=== PATIENT | female | born 1970 | race Caucasian/White ===

== ENCOUNTER 2018-05-01 15:41 | Observation (INO) ==
[2018-05-01] MEDS ORDERED: Acetaminophen 325 MG Tablet PO ONE (16:55)
[2018-05-01] MEDS ORDERED: Aspirin 325 MG Tablet PO ONE (16:55)
[2018-05-01] MEDS ORDERED: Famotidine PF Inj 20 MG/2 ML Vial IV.PUSH ONE (16:55)
[2018-05-01 17:11] LABS: Baso % (Auto) 0.5 % (0.0-2.0); Eos # (Auto) 0.1 th/mm3 (0.0-0.4); Eos % (Auto) 1.8 % (0.0-4.0); Hematocrit 36.5 % (35.0-46.0); Hemoglobin 12.5 gm/dL (11.6-15.3); Lymph # (Auto) 1.6 th/mm3 (1.0-4.8); Lymph % (Auto) 21.2 % (9.0-44.0); Mean Corpuscular HGB Conc 34.3 % (32.0-36.0); Mean Corpuscular Hemoglobin 31.7 pg (27.0-34.0); Mean Corpuscular Volume 92.3 fL (80.0-100.0); Mean Platelet Volume 6.6 fL (7.0-11.0); Mono # (Auto) 0.6 th/mm3 (0.0-0.9); Neut # (Auto) 5.3 th/mm3 (1.8-7.7); Neut % (Auto) 68.5 % (16.0-70.0); Platelet Count 333 th/mm3 (150-450); Red Blood Count 3.96 mil/mm3 (4.00-5.30); Red Cell Distribution Width 13.4 % (11.6-17.2); White Blood Count 7.7 th/mm3 (4.0-11.0)
--- NOTE | 2018-05-01 17:17 | XR ---
EXAM DATE: 05/01/2018 5:14 PM EDT AGE/SEX: 47 years / Female INDICATIONS: Left sided posterior chest pain and shortness of breath. CLINICAL DATA: This is the patient's initial encounter. Patient reports that signs and symptoms have been present for 1 day and indicates a pain score of 9/10. MEDICAL/SURGICAL HISTORY: None. None. COMPARISON: [facility], XR CHEST PA AND LAT, 12/18/2017. . FINDINGS: A single AP view of the chest demonstrates the lungs to be symmetrically aerated without evidence of mass, infiltrate or effusion. The cardiomediastinal contours are unremarkable. Osseous structures a re intact. CONCLUSION: Negative examination. Electronically signed by: Hero Bergman MD 05/01/2018 5:15 PM EDT
[2018-05-01 17:37] LABS: Alanine Aminotransferase 21 U/L (10-53); Albumin 3.8 g/dL (3.4-5.0); Anion Gap 8 meq/L (5-15); Aspartate Aminotransferase 16 U/L (15-37); Blood Urea Nitrogen 11 mg/dL (7-18); Calcium 8.4 mg/dL (8.5-10.1); Carbon Dioxide 27.9 meq/L (21.0-32.0); Chloride 106 meq/L (98-107); Glomerular Filtration Rate 63 mL/min (>89); Glucose,Random 92 mg/dL (74-106); Lipase 139 U/L (73-393); Sodium 142 meq/L (136-145)
[2018-05-01 17:41] LABS: Alkaline Phosphatase 51 U/L (45-117); Total Protein 7.5 g/dL (6.4-8.2)
[2018-05-01 17:52] LABS: Creatine Kinase 88 U/L (26-192)
--- NOTE | 2018-05-01 17:58 | ED ---
HPI General Chief Complaint: Chest Pain Stated Complaint: chest pain Time Seen by Provider: 05/01/18 16:45 Source: patient and family Mode of arrival: ambulatory Limitations: no limitations History of Present Illness HPI narrative: 47-year-old female that presents to the ED for evaluation of left -sided chest pain, headache and back pain. Per patient the pain starts from the back and goes to the front on the left side. Only on the left side. She woke up with this pain. Per patient she also woke up with heartburn that she is not really experienced before. Per patient feels like a burning sensation. Pain on the chest per patient is sharp and is 8 out of 10 and feels like somebody put a pin on her back all the way to the front. Per patient she started having a headache as well as some lightheadedness. Per patient she takes no medications other than over the counter vitamins. Per patient she has had similar pain in the past but not as significant as today and never with hearthburn and headache. No urinary or bowel movement issues. No control use. No recent travel. No injuries. Complete Quality Measures for STEMI Alert Patients Related Data Home Medications Medication Instructions Recorded Confirmed ascorbic acid (vitamin C) [Vitamin 1,000 mg PO DAILY 05/01/18 05/01/18 C] cyanocobalamin (vitamin B-12) 5,000 mcg PO DAILY 05/01/18 05/01/18 [Vitamin B-12] Allergies Allergy/AdvReac Type Severity Reaction Status Date / Time shellfish derived Allergy Anaphylaxis Verified 05/01/18 15:51 Review of Systems ROS: all other systems reviewed are negative [facility] Medical History Medical History Patient denies medical problems (Acute) Social History Social History Substance History: No History of Abuse Second Hand Smoke Exposure: Yes Smoking Status: Former smoker How Often Do You Have a Drink Containing Alcohol: Monthly or less Recent Travel in [facility] within the Last 8 Weeks: No Recent Out of Country Travel within the Last 8 Weeks: No Immunization History Tetanus Immunization: >5 Years Hx Influenza Vaccine This Season: No Exam Narrative Exam Narrative: GENERAL: Well appearing SKIN: Focused skin assessment warm/dry. HEAD: Atraumatic. Normocephalic. EYES: Pupils equal and round. No scleral icterus. No injection or drainage. ENT: No nasal bleeding or discharge. Mucous membranes pink and moist. Tongue is midline. No uvula deviation. NECK: Trachea midline. No JVD. CARDIOVASCULAR: Regular rate and rhythm. No murmur appreciated. Chest pain is not reproducible with touch. RESPIRATORY: No accessory muscle use. Clear to auscultation. Breath sounds equal bilaterally. GASTROINTESTINAL: Abdomen soft, non-tender, nondistended. Hepatic and splenic margins not palpable. MUSCULOSKELETAL: No obvious deformities. No clubbing. No cyanosis. No edema. Full range of motion of the upper and lower extremities bilaterally. 2+ pulses bilaterally. NEUROLOGICAL: Awake and alert. No obvious cranial nerve deficits. Motor grossly within normal limits. Normal speech. PSYCHIATRIC: Appropriate mood and affect; insight and judgment normal. Course Initial Documented Vital Signs Temperature 98.7 F 05/01/18 15:51 Pulse Rate 93 H 05/01/18 15:51 Respiratory Rate 17 05/01/18 15:51 Blood Pressure 141/73 H 05/01/18 15:51 Pulse Oximetry 98 05/01/18 15:51 Last Documented Vital Signs Temperature 98.7 F 05/01/18 15:51 Pulse Rate 76 05/01/18 18:18 Respiratory Rate 17 05/01/18 18:18 Blood Pressure 122/76 05/01/18 18:18 Pulse Oximetry 100 05/01/18 18:18 Medical Decision Making MDM Narrative Medical decision making narrative: 47-year-old female that presents to the ED for evaluation of left-sided chest pain that starts from the back. Patient was properly examined and was found to have signs and symptoms of unclear etiology. There is some concern for ACS. Patient does have a significant family history of ACS in the family with mother having had multiple heart events in the past. She does not have any other risk factors at this time other than her blood pressure. Currently states that her pain is 6 out of 10. She was given aspirin nitroglycerin. Labs and imaging were ordered. Labs and imaging showed no sign of acute disease. Case was discussed with my attending. Would recommend admission to chest pain center for further evaluation secondary to patient having risk factors and the pain that she is having. He does appear to be somewhat atypical but I cannot completely rule out ACS and she does have a family history of heart disease. Patient was offered this and agreed to admission for further evaluation. Patient was admitted by me to chest pain center. Orders placed by me. Medical Screen Exam Complete: Yes Emergency Medical Condition: Yes Differential Diagnosis Differential Diagnosis: Chest pain versus typical chest pain versus ACS versus PE versus muscle strain versus muscle spasm Medical Records Medical records reviewed: Yes I reviewed the patient's medical records. Lab Data Lab results reviewed: Yes I reviewed the patient's lab results. Lab results narrative: troponin and CKMB negative d-dimmer negative Result diagrams: 05/01/18 16:45 05/01/18 16:45 Lab Results 05/01/18 05/01/18 05/01/18 Range/Units 16:45 16:45 16:45 WBC 7.7 (4.0-11.0) th/mm3 RBC 3.96 L (4.00-5.30) mil/mm3 Hgb 12.5 (11.6-15.3) gm/dL Hct 36.5 (35.0-46.0) % MCV 92.3 (80.0-100.0) fL MCH 31.7 (27.0-34.0) pg MCHC 34.3 (32.0-36.0) % RDW 13.4 (11.6-17.2) % Plt Count 333 (150-450) th/mm3 MPV 6.6 L (7.0-11.0) fL Neut % (Auto) 68.5 (16.0-70.0) % Lymph % (Auto) 21.2 (9.0-44.0) % [place] % (Auto) 8.0 (0.0-8.0) % Eos % (Auto) 1.8 (0.0-4.0) % Baso % (Auto) 0.5 (0.0-2.0) % Neut # (Auto) 5.3 (1.8-7.7) th/mm3 Lymph # (Auto) 1.6 (1.0-4.8) th/mm3 [place] # (Auto) 0.6 (0.0-0.9) th/mm3 Eos # (Auto) 0.1 (0.0-0.4) th/mm3 Baso # (Auto) 0.0 (0.0-0.2) th/mm3 WBC Differential . Differential Comment Auto diff final D-Dimer Quant (PE/DVT) Less than 0.19 (0.00-0.50) mg/L FEU Sodium 142 (136-145) meq/L Potassium 4.0 (3.5-5.1) meq/L Chloride 106 (98-107) meq/L Carbon Dioxide 27.9 (21.0-32.0) meq/L Anion Gap 8 (5-15) meq/L BUN 11 (7-18) mg/dL Creatinine 0.95 (0.50-1.00) mg/dL Estimated GFR 63 L (>89) mL/min Random Glucose 92 (74-106) mg/dL Calcium 8.4 L (8.5-10.1) mg/dL Total Bilirubin 0.2 (0.2-1.0) mg/dL AST 16 (15-37) U/L ALT 21 (10-53) U/L Alkaline Phosphatase 51 (45-117) U/L Total Creatine Kinase 88 (26-192) U/L Troponin I Less than 0.02 L (0.02-0.05) ng/mL Total Protein 7.5 (6.4-8.2) g/dL Albumin 3.8 (3.4-5.0) g/dL Lipase 139 (73-393) U/L Imaging Data Attestation: I personally reviewed and interpreted this imaging study as follows : Radiologist's impression: Chest X-Ray 05/01/18 16:55 CONCLUSION: Negative examination. Thoracic Spine CT 05/01/18 18:05 CONCLUSION: Negative thoracic spine CT examination. ECG Data Attestation: I personally reviewed and interpreted this ECG as follows: Interpretation: EKG shows sinus rhythm with no sign of ST elevations or acute ischemia read by me and attending. Ventricular rate of 98, UT interval of 203 ms. Discharge Plan Discharge Disposition Patient Disposition: 30 Still Patient Discharge Details Diagnosis: Chest pain Physicians Team ED Provider: Krista Meneses ED Midlevel Provider: Jon Daniels Primary Care Provider: NON STAFF,PROVIDER Attending Provider: Ritesh Hancock Status ED Status: Admitted Observation Patient
[2018-05-01] MEDS ORDERED: Morphine Inj 4 MG/ML Vial IV.PUSH ONE (18:34)
--- NOTE | 2018-05-01 19:33 | CT ---
EXAM DATE: 05/01/2018 7:22 PM EDT AGE/SEX: 47 years / Female INDICATIONS: Upper back and left sided chest pain. CLINICAL DATA: This is the patient's initial encounter. Patient reports that signs and symptoms have been present for 1 day and indicates a pain score of 7/10. MEDICAL/SURGICAL HISTORY: None. None. RADIATION DOSE: 27.36 CTDI (mGy) COMPARISON: No prior exams available for comparison. TECHNIQUE: Contiguous axial images were acquired using a multirow detector CT scanner without contra st. Multiplanar reconstruction in the sagittal and coronal planes was performed. Using automated exp osure control and adjustment of the mA and/or kV according to patient size, radiation dose was kept a s low as reasonably achievable to obtain optimal diagnostic quality images. DICOM format image data is available electronically for review and comparison. FINDINGS: Vertebrae: Normal vertebral body height. Alignment: Normal. No subluxation. T1 - T2: Normal. T2 - T3: The thecal sac has a normal diameter. No evidence of disc bulge or protrusion. T3 - T4: The thecal sac has a normal diameter. No evidence of disc bulge or protrusion. T4 - T5: The thecal sac has a normal diameter. No evidence of disc bulge or protrusion. T5 - T6: The thecal sac has a normal diameter. No evidence of disc bulge or protrusion. T6 - T7: The thecal sac has a normal diameter. No evidence of disc bulge or protrusion. T7 - T8: The thecal sac has a normal diameter. No evidence of disc bulge or protrusion. T8 - T9: The thecal sac has a normal diameter. No evidence of disc bulge or protrusion. T9 - T10: The thecal sac has a normal diameter. No evidence of disc bulge or protrusion. T10 - T11: The thecal sac has a normal diameter. No evidence of disc bulge or protrusion. T11 - T12: The thecal sac has a normal diameter. No evidence of disc bulge or protrusion. T12 - L1: The thecal sac has a normal diameter. No evidence of disc bulge or protrusion. CONCLUSION: Negative thoracic spine CT examination. Electronically signed by: Ramy Knott MD 05/01/2018 7:31 PM EDT
[2018-05-01] MEDS ORDERED: Morphine Inj 4 MG/ML Vial IV.PUSH PRN (19:40)
[2018-05-01] MEDS ORDERED: Acetaminophen 500 MG Tablet PO PRN (19:40)
[2018-05-01 21:50] LABS: Creatine Kinase 69 U/L (26-192)
[2018-05-02 03:14] LABS: Creatine Kinase 64 U/L (26-192)
--- NOTE | 2018-05-02 08:00 | P.HPCA ---
History of Present Illness Primary Care Physician: PROVIDER NON STAFF-[place] Chief Complaint: left shoulder and chest pain History of Present Illness: 47-year-old female with history of hyperlipidemia presents to the emergency room for further evaluation of left shoulder and chest pain. Onset yesterday 3: 30 AM location left shoulder blade. Radiation to left shoulder, left anterior chest, and left posterior neck, and left jaw. Characterized as sharp, stabbing pain. Moderate to severe in severity. Duration constant. Currently described as a "dull, throbbing pain." Endorses chronic nausea, therefore unable to determine if she had associated nausea with above symptoms. Denied vomiting, dyspnea, or diaphoresis. States "I couldn't take a deep breath due to the pain. " Notices discomfort "more with movement." Relieving factors massaging area, stating has been massaging area helps. Former smoker quit 16 years ago. No known CAD, diabetes, or hypertension. Diagnosed in early 20s with hyperlipidemia, not taking medications due to her concern with statin therapy. No past cardiac testing. Recent illness, fever, or injury. Endorses similar pain although not as severe in her left shoulder for many years. Past cardiac testing 2001-30 day Holter monitor due to syncope episodes. Determine cause of syncope episode likely due to carbon monoxide poisoning related to job. Worked for [employer]. - Diagnosis (1) Atypical chest pain (2) Left shoulder pain (3) Hyperlipidemia Review of Systems All other systems reviewed negative except as stated in HPI [facility] - History History Provided By: Patient - Medical History Medical History: Medical History (Last Updated 05/02/18 @ 09:44 by MOE Rae) Chronic nausea Hyperlipidemia - Family History Family History: Family History (Last Updated 05/02/18 @ 09:46 by MOE Rae) Aunt Breast cancer Ovarian cancer Aunt Ovarian cancer Father Prostate cancer CVA (cerebral vascular accident) Mother CVA (cerebral vascular accident) - Tobacco History Second Hand Smoke Exposure: Yes Tobacco Use In Past 30 Days: No Smoking Status: Former smoker (Quit 16 years ago) - Alcohol History How Often Do You Have a Drink Containing Alcohol: Never - Substance Use History Substance History: No History of Abuse - Travel History Recent Travel in the [place] Within the Last 8 Weeks: No Recent Travel Out of the Country Within the Last 8 Weeks: No - Immunization History Tetanus Immunization: >5 Years Hx Influenza Vaccine This Season: No Medications and Allergies Active Medications: Active Medications Acetaminophen (Tylenol) 500 mg PO Q4H PRN PRN Reason: HEADACHE Hydrocodone Bitart/Acetaminophen ([place] 7.5/325) 1 tab PO Q4H PRN PRN Reason: PAIN SCALE 1 TO 7 Morphine Sulfate (Morphine Inj) 2 mg IV.PUSH Q4H PRN PRN Reason: PAIN SCALE 8 TO 10 Sodium Chloride (Ns Flush) 2 ml IV.FLUSH UNSCH PRN PRN Reason: FLUSH AFTER USING IV ACCESS Sodium Chloride (Ns Flush) 2 ml IV.FLUSH BID IZAIAH Last Admin: 05/02/18 07:24 Dose: Not Given Sodium Chloride (Ns Flush) 2 ml IV.FLUSH PRN PRN PRN Reason: FLUSH AFTER USING IV ACCESS Allergies Allergy/AdvReac Type Severity Reaction Status Date / Time shellfish derived Allergy Anaphylaxis Verified 05/01/18 15:51 Home Medications Medication Instructions Recorded Confirmed Type ascorbic acid (vitamin C) [Vitamin 1,000 mg PO DAILY 05/01/18 05/01/18 History C] cyanocobalamin (vitamin B-12) 5,000 mcg PO DAILY 05/01/18 05/01/18 History [Vitamin B-12] Exam Vital signs: Vital Signs 05/01/18 15:51 05/01/18 17:02 05/01/18 18:18 Temperature 98.7 F Pulse Rate 93 H 76 Respiratory Rate 17 17 Blood Pressure 141/73 H 122/76 Pulse Oximetry 98 97 100 05/02/18 01:28 05/02/18 04:23 05/02/18 04:37 Temperature 97.5 F L 98 F Pulse Rate 70 67 63 Respiratory Rate 18 18 Blood Pressure 119/77 93/59 L Pulse Oximetry 100 05/02/18 07:33 05/02/18 07:51 Temperature 93.8 F L Pulse Rate 76 74 Respiratory Rate 12 Blood Pressure 108/64 Pulse Oximetry 98 Intake & Output 05/01/18 05/02/18 05/02/18 18:59 06:59 18:59 Intake Total 0 / 0 Balance 0 / 0 Weight 90.718 kg Intake: Oral 0 / 0 Other: # Voids 0 Date of Last Bowel Movement 05/01/18 Narrative: GENERAL: Alert WN, WD, NAD, very pleasant, female HEAD: NC, AT EYES: Sclera clear, conjunctiva without injection, pupils equal and round CV: RRR, without murmur, rub, gallop, no JVD, S1-S2 no S3-S4. Left anterior chest wall pain with palpation. RESP: Clear lungs throughout bilateral, no crackles, wheeze, rhonchi, symmetrical chest rise, nonlabored, able to speak in full sentences ABD: Soft, NT, ND, no masses, positive bowel tones EXT: Pulses +2x4, no dependent edema MS: Normal tone x4 extremities, no obvious deformities, full range of motion, left scapula point tenderness with palpation, no reproducible pain with passive left arm/shoulder movement NEURO: CN II through CN XII grossly intact, motor strength 5/5 PSYCH: A+O x3, pleasant affect, appropriate speech, mood, insight and judgment SKIN: Normal turgor, normal texture, no lesions, no rashes, brisk cap refill, even hair distribution Results 05/01/18 16:45 05/01/18 16:45 Cardiac Enzymes 05/01/18 05/01/18 05/02/18 Range/Units 16:45 20:30 02:00 AST 16 (15-37) U/L Troponin I Less than 0.02 L Less than 0.02 L Less than 0.02 L (0.02-0.05) ng/mL CBC 05/01/18 Range/Units 16:45 WBC 7.7 (4.0-11.0) th/mm3 RBC 3.96 L (4.00-5.30) mil/mm3 Hgb 12.5 (11.6-15.3) gm/dL Hct 36.5 (35.0-46.0) % Plt Count 333 (150-450) th/mm3 Neut # (Auto) 5.3 (1.8-7.7) th/mm3 Lymph # (Auto) 1.6 (1.0-4.8) th/mm3 [place] # (Auto) 0.6 (0.0-0.9) th/mm3 Eos # (Auto) 0.1 (0.0-0.4) th/mm3 Baso # (Auto) 0.0 (0.0-0.2) th/mm3 Comprehensive Metabolic Panel 05/01/18 Range/Units 16:45 Sodium 142 (136-145) meq/L Potassium 4.0 (3.5-5.1) meq/L Chloride 106 (98-107) meq/L Carbon Dioxide 27.9 (21.0-32.0) meq/L BUN 11 (7-18) mg/dL Creatinine 0.95 (0.50-1.00) mg/dL Calcium 8.4 L (8.5-10.1) mg/dL AST 16 (15-37) U/L ALT 21 (10-53) U/L Alkaline Phosphatase 51 (45-117) U/L Total Protein 7.5 (6.4-8.2) g/dL Albumin 3.8 (3.4-5.0) g/dL Intake and Output 05/01/18 05/02/18 05/02/18 22:59 06:59 14:59 Intake Total 0 / 0 Balance 0 / 0 Intake: Oral 0 / 0 Other: # Voids 0 Date of Last Bowel Movement 05/01/18 Weight 90.718 kg EKG interpretations - EKG EKG results cardiology: sinus rhythm, normal axis, normal QRS, normal ST/T (1st EKG-nsr, normal axis, nonspecific T-wave change, 3rd-EKG normal sinus rhythm first-degree AV block, no ST-T segment change) Caprini VTE Risk Assessment Caprini VTE Risk Assessment: No/Low Risk (score <= 1) Caprini Risk Assessment Model: Point Value = 1 Point Value = 2 Point Value = 3 Point Value = 5 Age 41-60 Minor surgery BMI > 25 kg/m2 Swollen legs Varicose veins or History of unexplained or recurrent spontaneous Oral contraceptives or hormone replacement Sepsis (< 1 month) Serious lung disease, including pneumonia (< 1 month) Abnormal pulmonary function Acute myocardial infarction Congestive heart failure (< 1 month) History of inflammatory bowel disease Medical patient at bed rest Age 61-74 Arthroscopic surgery Major open surgery (> 45 min) Laparoscopic surgery (> 45 min) Malignancy Confined to bed (> 72 hours) Immobilizing plaster cast Central venous access Age >= 75 History of VTE Family history of VTE Factor V Leiden Prothrombin [id number] Lupus anticoagulant Anticardiolipin antibodies Elevated serum homocysteine Heparin-induced thrombocytopenia Other congenital or acquired thrombophilia Stroke (< 1 month) Elective arthroplasty Hip, pelvis, or leg fracture Acute spinal cord injury (< 1 month) Prophylaxis Regimen: Total Risk Factor Score Risk Level Prophylaxis Regimen 0-1 Low Early ambulation 2 Moderate Order ONE of the following: *Sequential Compression Device (SCD) *Heparin 5000 units SQ BID 3-4 Higher Order ONE of the following medications: *Heparin 5000 units SQ TID *Enoxaparin/Lovenox 40 mg SQ daily (WT < 150 kg, CrCl > 30 mL/min) *Enoxaparin/Lovenox 30 mg SQ daily (WT < 150 kg, CrCl > 10-29 mL/min) *Enoxaparin/Lovenox 30 mg SQ BID (WT < 150 kg, CrCl > 30 mL/min) AND/OR *Sequential Compression Device (SCD) 5 or more Highest Order ONE of the following medications: *Heparin 5000 units SQ TID (Preferred with Epidurals) *Enoxaparin/Lovenox 40 mg SQ daily (WT < 150 kg, CrCl > 30 mL/min) *Enoxaparin/Lovenox 30 mg SQ daily (WT < 150 kg, CrCl > 10-29 mL/min) *Enoxaparin/Lovenox 30 mg SQ BID (WT < 150 kg, CrCl > 30 mL/min) AND *Sequential Compression Device (SCD) Assessment and Plan - Assessment (1) Atypical chest pain Code(s): R07.89 - Other chest pain Status: Acute Plan: Admitted to chest pain center. ACS ruled out with 3 sets of EKGs and cardiac enzymes. Will be seen and evaluated by Dr. Ritesh Hancock. Likely will proceed with exercise cardiac testing. Comfort left anterior chest likely related to muscular chest wall referred pain Toradol 30 mg IV 1 dose now. (2) Left shoulder pain Code(s): M25.512 - Pain in left shoulder Status: Acute Plan: Toradol 30 mg IV 1 dose now. Thoracic spine imaging unremarkable. (3) Hyperlipidemia Code(s): E78.5 - Hyperlipidemia, unspecified Status: Chronic Plan: Strongly encouraged taking PCP advice of starting statin therapy. Encouraged dietary modifications and increasing daily activity in addition to statin therapy, not as substitution. Reports high cholesterol numbers since early 20s and has been resistant to taking cholesterol medication. H&P: Quality - VTE Deep Vein Thrombosis/Pulmonary Embolism Present on Admission: No (3) Hyperlipidemia Qualifiers: Hyperlipidemia type: unspecified Qualified Code(s): E78.5 - Hyperlipidemia, unspecified
[2018-05-02] MEDS ORDERED: Ketorolac Inj 30 MG/ML (IVP) Vial IV.PUSH ONE (08:45)
--- NOTE | 2018-05-02 11:27 | TR ---
Date Performed: 05/02/2018 Time Performed: 10:31:10 DOCTOR: Ritesh Hancock DRUG LIST: CLINICAL HISTORY: REASON FOR TEST: Chest pain REASON FOR ENDING: OBSERVATION: CONCLUSION: Ishmael protocol completed. Stopped sec to exceeding target heart rate. Maximum QR=963 Max HR Achieved=94.0% Maximum OY=361/62 Total Exercise Time=9:01. No reprod chest discomfort. Baseli ne st t nonspecific change. Liable st segment changes during exam. ST segment upsloping at peak. Goo d exercise tolerance. Rare PVC. Normal bp response. Recovery quick. During recovery st depression and t wave inversion. COMMENTS: very labile STT changes, suggest nuc ETT test.
[2018-05-02 14:18] VITALS: BP 103/65; PULSE 83; RESP 16; TEMP 97.8; O2SAT 100
--- NOTE | 2018-05-02 14:30 | NM ---
EXAM DATE: 05/02/2018 2:26 PM EDT AGE/SEX: 47 years / Female INDICATIONS: Angina. . Chest pain radiating to left shoulder, left anterior chest, and left posterio r neck, and left jaw. CLINICAL DATA: This is the patient's initial encounter. Patient reports that signs and symptoms have been present for 1 day and indicates a pain score of 4/10. MEDICAL/SURGICAL HISTORY: . Chronic nausea, hyperlipidemia. . COMPARISON: No prior exams available for comparison. DOSE: 8.8 mCi Tc 99m Myoview at rest 27.5 mCi [id number] at stress REST HEART RATE: 98 BPM TARGET HEART RATE: 148 BPM MAX HEART RATE: 163 BPM REST BLOOD PRESSURE: 104/64 mmHg MAX BLOOD PRESSURE: 156/66 mmHg EJECTION FRACTION: 52 % TECHNIQUE: The patient underwent upright treadmill exercise in the chest pain center. Continuous EC G tracing was monitored during stress. Gated SPECT imaging was performed after stress, and conventio nal SPECT imaging was performed at rest. The examination was performed on a SPECT/CT scanner, both a ttenuation-corrected and non-corrected datasets were reviewed. FINDINGS: Distribution: The maximum perfused segment at stress is in the inferior wall. Perfusion: No reversible perfusion defects are identified. A small fixed perfusion defect at the a nterior wall is seen. Gated Study: There are intact wall motion and wall thickening without hypokinetic or dyskinetic segme nts. The ejection fraction is calculated at 52%. RISK CATEGORY: Low (<1% Annual Motality Rate) CONCLUSION: 1. No reversible perfusion defects are identified at this time to suggest stress-induced myocardial ischemia. Electronically signed by: Hero Bergman MD 05/02/2018 2:29 PM EDT
--- NOTE | 2018-05-02 15:36 | TR ---
Date Performed: 05/02/2018 Time Performed: 12:51:35 DOCTOR: Ritesh Hancock DRUG LIST: CLINICAL HISTORY: REASON FOR TEST: Chest pain REASON FOR ENDING: OBSERVATION: CONCLUSION: Ishmael protocol completed. Stopped sec to exceeding target heart rate. Maximum DF=375 Target HR Achieved=94.0% Maximum AQ=785/64 Total Exercise Time=8:02. No reprod chest discomfort. No ectopy. St depression inferior leads with t wave inversions at peak. Nonspecific st t segment change s intermittent during exam.. Normal bp response. Recovery quick and unremarkable. Nuclear images pen ding. COMMENTS: STT wave changes positive for possible ischemia.
--- NOTE | 2018-05-02 15:38 | ECG ---
Date Performed: 05/02/2018 Time Performed: 02:09:28 PTAGE: 47 years EKG: Sinus rhythm WITH FIRST DEGREE AV BLOCK ABNORMAL ECG PREVIOUS TRACING : 05/01/2018 16.04 Since previous tracing, no significant change noted DOCTOR: Ritesh Hancock Interpretating Date/Time 05/02/2018 15:37:59
--- NOTE | 2018-05-02 15:40 | ECG ---
Date Performed: 05/01/2018 Time Performed: 16:04:27 PTAGE: 47 years EKG: Sinus rhythm NONSPECIFIC T-WAVE ABNORMALITY BORDERLINE ECG NO PREVIOUS TRACING DOCTOR: Ritesh Hancock Interpretating Date/Time 05/02/2018 15:39:14
== END 2018-05-02 16:53 | disposition home or self-care (01) ==
LOC: NEDA 15:41 → NEPC 15:41 → NEPFCDU 05-02 01:21
DX: Z82.3 Family history of stroke; Z87.891 Personal history of nicotine dependence; R07.89 Other chest pain; E78.00 Pure hypercholesterolemia, unspecified; E78.5 Hyperlipidemia, unspecified; Z80.3 Family history of malignant neoplasm of breast; Z80.41 Family history of malignant neoplasm of ovary; R94.31 Abnormal electrocardiogram [ECG] [EKG]; M25.512 Pain in left shoulder